=== PATIENT | female | born 2000 | race Two or more races ===

== ENCOUNTER 2020-03-28 07:25 | Outpatient (CLI) | payer OTHER ==
[2020-04-09] MEDS ORDERED: PROAIR HFA8.5 GM IH (09:55)
[2020-04-09] MEDS ORDERED: ALBUTEROL1.25 MG/3 IH (09:55)
== END 2020-03-28 07:41 | disposition home or self-care (01) ==
LOC: LAB 07:25
PROVIDERS: ATTEND Surgery
DX: K80.80 Other cholelithiasis without obstruction (principal)

== ENCOUNTER 2020-03-28 08:04 | Outpatient (CLI) | payer OTHER ==
[2020-04-09] MEDS ORDERED: ALBUTEROL1.25 MG/3 IH (09:55)
[2020-04-09] MEDS ORDERED: PROAIR HFA8.5 GM IH (09:55)
== END 2020-03-28 08:19 | disposition home or self-care (01) ==
LOC: MRI 08:04
PROVIDERS: ATTEND Surgery
DX: K80.80 Other cholelithiasis without obstruction (principal); K80.50 Calculus of bile duct without cholangitis or cholecystitis without obstruction
CPT/HCPCS: 74181

== ENCOUNTER 2020-04-16 06:15 | Day surgery (SDC) | payer OTHER ==
[~2020-04-16 06:15] MED LIST: ALBUTEROL1.25 MG/3 IH; PROAIR HFA8.5 GM IH
[2020-04-16] MEDS ORDERED: PROTONIX40 MG PO (18:34)
[2020-04-16] MEDS ORDERED: ULTRACET PO (18:34)
[2020-04-16] MEDS ORDERED: CIPRO500 MG PO (18:34)
== END 2020-04-16 20:50 | disposition home or self-care (01) ==
LOC: CIR.AMB 06:15
PROVIDERS: ATTEND Surgery
DX: K80.10 Calculus of gallbladder with chronic cholecystitis without obstruction (principal); Z20.822 Contact with and (suspected) exposure to COVID-19

== ENCOUNTER 2020-10-15 09:46 | Outpatient (CLI) | payer OTHER ==
[~2020-10-15 09:46] MED LIST changes: +CIPRO500 MG PO; +PROTONIX40 MG PO; +ULTRACET PO
== END 2020-10-15 10:46 | disposition home or self-care (01) ==
LOC: PRENATAL 09:46
PROVIDERS: ATTEND Obstetrics & Gynecology Maternal & Fetal Medicine
DX: O35.0XX1 Maternal care for (suspected) central nervous system malformation in fetus, fetus 1 (principal); O35.3XX1 Maternal care for (suspected) damage to fetus from viral disease in mother, fetus 1; O98.512 Other viral diseases complicating pregnancy, second trimester; O26.872 Cervical shortening, second trimester; Z36.89 Encounter for other specified antenatal screening; Z3A.22 22 weeks gestation of pregnancy